=== PATIENT | male | born 1945 | race Caucasian/White ===

== ENCOUNTER 2016-09-11 10:49 | Outpatient (CLI) | payer MEDICARE ==
[~2016-09-11] VITALS: Ht 177.8 cm; Wt 109.1 kg
--- NOTE | ~2016-09-11 | HEMODYNAMI ---
PATIENT:OMAR ELAM MEDICAL RECORD: [id number] : 41 LOCATION:[facility] ADMISSION DATE: 09/11/16 Generatedon:09/11/201613:15 Patient name: OMAR ELAM Patient #: [id number] SSN: : 1945 Date of study: 09/11/2016 Page: Of Hemodynamic Procedure Report Patient Data Patient Demographics Procedure consent was obtained First Name: OMAR Gender: Male Last Name: PAPA : 1945 [facility] Initial: SOFIE Age: 71 year(s) Patient #: [id number] Race: Additional ID: [id number] Contact details [address]: [address] [place] [address] State: [place] City: [place] Zip code: [address] Past Medical History Allergies: No known allergies Admission Admission Data Admission Date: 09/11/2016 Admission Time: 10:49 Insurance Payor: Medicare Weight (lbs.): 240.31 Weight (kg.): 109 Lab Results Lab Result Date: 09/11/2016 Lab Result Time: 11:55 Biochemistry Name Units Result Min Max BUN mg/dl 25 --(----)-* 7 18 Creatinine mg/dl 1.4 --(----)*- 0.6 1.3 CBC Name Units Result Min Max Hematocrit % 45.2 --(-*--)-- 42 54 Hemoglobin g/dl 15.4 --(-*--)-- 13.5 17.5 Procedure Procedure Types Cath Procedure Miscellaneous Procedures Moderate Sedation up to 30 minutes Peripheral Cath Diagnostic Procedure Cath Peripheral Mjzpt-Zsomict-Mkw-Off Procedure Description Procedure Date Procedure Date: 09/11/2016 Procedure Start Time: 13:00 Procedure End Time: 13:12 Procedure Staff Name Function Milton Castillo MD Performing Physician Vivien Walters RT Scrub Landy Russell RN Nurse Radames Olmedo RN Promotional Representative Lloyd Mathias RT Monitor Procedure Data Cath Procedure Fluoroscopy Diagnostic fluoroscopy Total fluoroscopy Time: 1 time: 1 min min Diagnostic fluoroscopy Total fluoroscopy dose: 397 dose: 397 mGy mGy Contrast Material Contrast Material Type Amount (ml) Isovue 300 100 Entry Location Entry Primary Successful Side Size Upsize Upsize Entry Closure Succes sful Closure Location (Fr) 1 (Fr) 2 (Fr) Remarks Device Remarks Femoral Right 5 Fr Exoseal artery Estimated blood loss: 5 ml Diagnostic catheters Device Type Used For End Catheter Placement Cordis Tempo 5Fr UF Procedure catheter Procedure Complications No complications Procedure Medications Medication Administration Route Dosage Oxygen NC 2 l/min Lidocaine 2% added to field 20 Heparin Flush Bag added to field 2 bags (1000units/500ml NS) 0.9% NaCl I.V. 100 ml/hr Benadryl I.V. 50 mg Versed I.V. 1 mg Fentanyl I.V. 50 mcg Versed I.V. 1 mg Fentanyl I.V. 50 mcg Versed I.V. 1 mg Fentanyl I.V. 50 mcg Versed I.V. 0.5 mg Fentanyl I.V. 25 mcg Hemodynamics Rest HGB: 15.4 (g/dl) Heart Rate: 73 (bpm) Snapshots Pre Cath Intra NCS Post Cath Vital Signs Time Heart Resp SPO2 etCO2 [id number] NIBP (mmHg) Rhythm Pain Sedation Rate (ipm) (%) (mmHg) (mmHg) Status Level (bpm) 12:37:14 53 15 99 0 0 160/76(133) SB 0 (11) 10(A) , No pain 12:41:40 52 17 99 0 0 161/78(112) SB 0 (11) 10(A) , No pain 12:45:56 58 16 96 0 0 131/67(111) SB 0 (11) 10(A) , No pain 12:50:14 51 17 97 0 0 144/69(105) SB 0 (11) 10(A) , No pain 12:54:28 80 16 94 0 0 117/70(92) NSR 0 (11) 9(A) , No pain 12:58:40 53 22 96 0 0 126/69(101) NSR 0 (11) 9(A) , No pain 13:02:56 66 16 95 0 0 123/64(96) NSR 0 (11) 9(A) , No pain 13:07:10 63 18 94 0 0 123/63(94) NSR 0 (11) 9(A) , No pain 13:11:24 63 17 97 0 0 142/69(100) NSR 0 (11) 10(A) , No pain Medications Time Medication Route Dose Verified Delivered Reason Notes Effe ctiveness by by 12:33:45 Oxygen NC 2 Milton Buffie used for l/min Jonathan Russell RN procedure 12:34:06 Lidocaine 2% added 20ml Milton Buffie for local to vial Jonathan Russell RN anesthetic field 12:34:13 Heparin Flush added 2 Milton Buffie used for Bag to bags Jonathan Russell RN procedure (1000units/500ml field NS) 12:34:22 0.9% NaCl I.V. 100 Milton Buffie Per ml/hr Jonathan Russell RN physician 12:45:55 Benadryl I.V. 50 mg Milton Buffie used for Jonathan Russell RN procedure 12:51:29 Versed I.V. 1 mg Milton Buffie for Jonathan Russell RN sedation 12:51:35 Fentanyl I.V. 50 Milton Buffie for mcg Jonathan Russell RN sedation 13:01:46 Versed I.V. 1 mg Milton Buffie for Jonathan Russell RN sedation 13:01:52 Fentanyl I.V. 50 Milton Buffie for mcg Jonathan Russell RN sedation 13:06:01 Versed I.V. 1 mg Milton Buffie for Jonathan Russell RN sedation 13:06:04 Fentanyl I.V. 50 Milton Buffie for mcg Jonathan Russell RN sedation 13:10:20 Versed I.V. 0.5 Milton Buffie for mg Jonathan Russell RN sedation 13:10:24 Fentanyl I.V. 25 Milton Buffie for mcg Jonathan Russell RN sedation Procedure Log Time Note 12:23:05 Radames Olmedo RN sent for patient. Start room use. 12:23:06 Time tracking: Regular hours 12:23:10 Plan of Care:Hemodynamics will remain stable., Cardiac rhythm will remain stable., Comfort level will be maintained., Respiratory function will remain adequate., Patient/ family verbilizes understanding of procedure., Procedure tolerated without complication., Recovers from procedure without complications.. 12:25:25 Patient allergic to No known allergies 12:25:47 ACCPatient has been prescribed/administered the following anti-anginal medication within the last 2 weeks: Beta Henrry 12:26:37 Patient received from Pre/Post Procedure Room to CCL 1 Alert and oriented. Tansferred to table in Supine position. 12:26:38 Warm blankets applied, and rebeka hugger turned on for patient comfort. 12:26:38 Correct patient and procedure confirmed by team. 12::40 Signed procedure consent form obtained from patient. 12::41 ECG and BP/O2 sat monitors applied to patient. 12:26:53 H&P Date Dictated: 09/04/2016 Within 30 days and on chart., H&P Addendum completed by physician on day of procedure. (MUST COMPLETE FOR ALL OUTPATIENTS). 12::55 Pre-procedure instructions explained to patient. 12::56 Pre-op teaching completed and patient verbalized understanding. 12:26:57 Family in waiting room. 12::59 Patient NPO since Midnight. 12:32:39 Is the patient allergic to Iodine/contrast media? No. 12:32:45 ACC The patient was administered the following blood thiners within the last 24 hours: None 12:33:14 Last dose of Eliquis was 09/08/16. 12:33:17 Patient diabetic? No. 12:33:19 Previous problem with sedation/anesthesia? No ? 12:33:20 Snore? Yes 12:33:21 Sleep apnea? No 12:33:21 Deviated septum? No 12:33:22 Opens mouth fully? Yes 12:33:23 Sticks out tongue? Yes 12:33:25 Airway obstruction? No ? 12:33:26 Dentures? No ? 12:33:38 Pre procedure: right dorsailis pedis pulse 1+ Palpable, but thready & weak; easily obliterated 12:33:42 Pre procedure: left dorsailis pedis pulse 1+ Palpable, but thready & weak; easily obliterated 12:33:45 Oxygen 2 l/min NC was given by Landy Russell RN; used for procedure; 12:33:47 Patient pain scale 0/10 ?. 12:34:05 IV patent on arrival in left wrist with 0.9% NaCl at [facility]. 12:34:06 Lidocaine 2% 20ml vial added to field was given by Landy Russell RN; for local anesthetic; 12:34:08 Lab results completed and on chart. 12:34:11 Bilateral groins area was prepped with chlora-prep and draped in sterile fashion 12:34:13 Heparin Flush Bag (1000units/500ml NS) 2 bags added to field was given by Landy Russell RN; used for procedure; 12:34:20 Alarms reviewed by R. N. 12:34:21 Sharps counted by scrub and verified by R.N. 12:34:22 0.9% NaCl 100 ml/hr I.V. was given by Landy Russell RN; Per physician; 12:34:37 Tegaderm 4 x 4 opened to sterile field. 12:34:37 Acist Manifold opened to sterile field. 12:34:38 Acist Hand Control opened to sterile field. 12:34:39 Acist Syringe opened to sterile field. 12:34:40 Bag Decanter opened to sterile field. 12:34:40 Medline Cath Pack opened to sterile field. 12:34:41 Terumo 5Fr [place] Sheath opened to sterile field. 12:34:41 [facility] 260cm J .035 wire opened to sterile field. 12:35:09 Vital chart was started 12:35:16 Rhythm: sinus rhythm 12:35:18 Full Disclosure recording started 12:39:59 Baseline sample Acquired. 12:45:55 Benadryl 50 mg I.V. was given by Landy Russell RN; used for procedure; 12:49:52 Zero performed for pressure channel P1 12:50:59 --------ALL STOP TIME OUT------ 12:51:01 Final Timeout: patient, procedure, and site verified with staff and physician. All members of the team are in agreement. 12:51:07 Bilateral groins site verified by team. 12:51:13 Physical assessment completed. ASA score P 2 - A patient with mild systemic disease as per Milton Castillo MD. 12:51:16 Sedation plan: IV Moderate Sedation Versed, Fentanyl 12:51:29 Versed 1 mg I.V. was given by Landy Russell RN; for sedation; 12:51:35 Fentanyl 50 mcg I.V. was given by Landy Russell RN; for sedation; 13:00:03 Procedure started. 13:00:07 Local anesthetic to right femoral artery with Lidocaine 2% by Milton Castillo MD.INITIAL ACCESS ONLY 13:00:14 A 5 Fr sheath was inserted into the Right Femoral artery 13:01:46 Versed 1 mg I.V. was given by Landy Russell RN; for sedation; 13:01:52 Fentanyl 50 mcg I.V. was given by Landy Russell RN; for sedation; 13:02:24 A Cordis Tempo 5Fr UF catheter was advanced over the wire and used for Procedure. 13:02:32 Abdominal Aortagram was performed. 13:04:47 Left leg runoff performed. 13:04:59 Right leg runoff performed. 13:06:01 Versed 1 mg I.V. was given by Landy Russell RN; for sedation; 13:06:04 Fentanyl 50 mcg I.V. was given by Landy Russell RN; for sedation; 13:09:49 Catheter removed. 13:09:59 Cordis 5Fr Exoseal opened to sterile field. 13:10:20 Versed 0.5 mg I.V. was given by Landy Russell RN; for sedation; 13:10:24 Fentanyl 25 mcg I.V. was given by Landy Russell RN; for sedation; 13:10:25 Sheath removed intact; hemostasis achieved with Exoseal to the Right Femoral artery. 13:10:28 Procedure ended.(Physican Out) 13:10:37 Fluoroscopy time 01.00 minutes. 13:10:44 Fluoroscopy dose: 397 mGy 13:10:44 Flurop Dose total: 397 13:10:47 Contrast amount:Isovue 300 100ml. 13:10:48 Sharps counted by scrub and verified by R.N. 13:10:49 Insertion/operative site no bleeding no hematoma. 13:10:52 Post-op/insertion site Right Femoral artery dressed using a 4 x 4 and Tegaderm. 13:10:58 Post right femoral artery:stable, soft, clean and dry 13:11:00 Post Procedure Pulses reassessed and unchanged 13:11:13 Post-procedure physical assessment completed. ASA score P 2 - A patient with mild systemic disease as per Milton Castillo MD. 13:11:16 Post procedure rhythm: unchanged. 13:11:18 Estimated blood loss: 5 ml 13:11:19 Post procedure instruction explained to patient.Patient verbalizes understanding. 13:11:20 Patient needs reinforcement of post procedure teaching. 13:12:09 Procedure type changed to Cath procedure, Miscellaneous Procedures, Moderate Sedation up to 30 minutes, Peripheral Cath Diagnostic Procedure, Cath Peripheral, Whgtm-Bcbrpea-Hyb-Off 13:12:41 Procedure and supply charges have been captured, reviewed, submitted and are correct. 13:12:43 Procedure Complication : No complications 13:12:45 Vital chart was stopped 13:12:45 See physician's report for complete and final results. 13:12:47 Report given to Pre/Post Procedure Room. 13:12:49 Patient transfered to Pre/Post Procedure Room with Stretcher. 13:12:51 Procedure ended. 13:12:51 Full Disclosure recording stopped 13:13:04 End room use (Document Last) 13:13:14 Patient Weight : 240.31 lbs 13:13:30 Insurance Payor : Medicare 13:14:48 Lab Result : Hemoglobin 15.4 g/dl 13:14:48 Lab Result : Creatinine 1.4 mg/dl 13:14:48 Lab Result : BUN 25 mg/dl 13:14:48 Lab Result : Hematocrit 45.2 % Device Usage Item Manufacture Quantity Catalog Hospital Part Current Minimal Lot# / Name Number Charge Number Stock Stock [facility]# Code [facility] [id number] [id number] 5 4 x 4 Acist Acist 1 07309 180535 427137 604136 5 Manifold [employer] Inc Acist Acist 1 09284 021110 594102 771084 5 Hand Medical Control Systems Inc Acist Acist 1 54364 200834 913527 090370 20 Syringe [employer] Inc Bag Microtek 1 2002S 063107 84073 910070 5 Decanter [employer] Medline Cardinal 1 [id number] 928990 66415 192212 5 Cath Health Pack Terumo Terumo 1 [id number] 045649 955260 860672 40 5Fr [place] [facility] Eliezer 1 516258 009149 705795 155802 30 260cm J .035 wire Cordis Cardinal 1 [id number] 165336 030547 744721 10 [facility] Spime 5Fr UF catheter Cordis Cardinal 1 EX500 [id number] 702726 630627 10 5Fr Health Exoseal Signature Audit [employer] Stage Time Signature Unsigned Intra-Procedure 09/11/2016 Lloyd Mathias 1:14:58 PM RT(R) Signatures Monitor : Lloyd Mathias RT Signature : Date : Time : [address] [place] [address]
[~2016-09-11 10:49] MED LIST: BAYER CHEWABLE81 MG PO; CENTRUM SILVER1 TA2 PO; CYCLOBENZAPRINE10 MG PO; DIOVAN HCT 320/1 TA2 PO; HEMOCYTE PLUS1 CAP PO; HYDROCODONE-APA1 TAB PO; LASIX40 MG PO; LOPRESSOR25 MG PO; METOPROLOL-HCT1 EACH PO; NORCO 5/325 TAB1 TA1 PO; NORVASC10 MG PO; PAXIL20 MG PO; PAXIL30 MG PO; PERCOCET 10/3251 TA1 PO; PLAVIX75 MG PO; PRAVACHOL20 MG PO; VIBRAMYCIN 100100 MG OR; VIBRAMYCIN 100100 MG PO; VIBRAMYCIN50 MG PO; VITAMIN B-121000 MCG PO
[2016-09-11] MEDS ORDERED: ELIQUIS2.5 MG PO (11:30)
[2016-09-11 11:34] VITALS: BP 136/64; Ht 177.8 cm; Wt 109.1 kg
[2016-09-11 12:04] LABS: BASOPHILS 0.5 % (0.0-2.0); EOSINOPHILS 3.2 % (0-7); HEMATOCRIT 45.2 % (42.0-54.0); HEMOGLOBIN 15.4 g/dL (13.5-17.5); IMMATURE GRANULOCYTES 1.3 % (0-5); LYMPHOCYTES 14.8 % (15-50); MCH 31.5 pg (26.0-34.0); MCHC 34.1 g/dL (31.0-37.0); MCV 92.4 fL (80.0-100.0); MEAN PLATELET VOLUME 12.2 fL (7.4-10.4); MONOCYTES 9.1 % (2-11); NEUTROPHILS 71.1 % (40-80); PLATELET COUNT 210 10x3/uL (130-400); RBC 4.89 10x6/uL (4.20-6.10); RDW 13.3 % (11.5-14.5); WBC 7.6 10x3/uL (4.8-10.8)
[2016-09-11 12:13] LABS: CALCIUM 9.3 mg/dL (8.5-10.1); CARBON DIOXIDE 32.8 mmol/L (21.0-32.0); CREATININE - SERUM 1.4 mg/dL (0.6-1.3)
[2016-09-11 12:15] LABS: ANION GAP 7.7 mmol/L (8-16); POTASSIUM - SERUM 4.5 mmol/L (3.5-5.1)
--- NOTE | 2016-09-11 13:49 | NUR ---
VSS WITH 5 FR EXOSEAL R/GROIN CDI NO BLEEDING NO HEMATOMA NOTED. CHEST PAIN IS DENIED
--- NOTE | 2016-09-11 16:04 | NUR ---
1415 PT DENIES ANY C/O PAIN OR NAUSEA. DRESSING TO RIGHT GROINIS CDI, NO BLEEDING OR HEMATOMA NOTED. PEDAL PULSES PALPABLE. AT BEDSIDE. VSS. INSTRUCTED PT TO KEEP RIGHT LEG STRAIGHT AND HEAD TO PILLOW AND PT VERBALIZES UNDERSTANDING. 1515 PT DENIES ANY C/O. DRESSING TO RIGHT GROIN IS CDI, PEDAL PULSES PALPABLE.
--- NOTE | 2016-09-11 16:24 | NUR ---
1550 IV DC'D WITH CATH INTACT. ASSISTED PT TO BETHROOM. PT VOIDED QS. 1605 REVIEWED DC INSTRUCTIONS WITH PT AND WHO VERBALIZE UNDERSTANDING. PT ESCORTED TO PRIVATE AUTO VIA WC BY STAFF WITH DRIVING HIM HOME.
--- NOTE | 2016-09-24 08:17 | OP ---
PATIENT NAME: OMAR ELAM MEDICAL RECORD: [id number] :41 LOCATION:D.CAT ADMISSION DATE: SURGEON: KORY DONATO M.D. DATE OF OPERATION: 09/11/2016 Catheterization Report PROCEDURES PERFORMED: Aortofemoral runoff. INDICATION: A 71-year-old gentleman, who presents with lifestyle limiting claudication. He has undergone VP OF CUSTOMER EXPERIENCE STRATEGY to the iliac arteries in the past. EQUIPMENT USED: A 5-Turkish pigtail catheter. TECHNIQUE: A 5-Turkish sheath was inserted in retrograde fashion in the right common femoral artery. Next, a pigtail catheter was advanced to the level of T12. Power injection was performed to visualize the distal aorta. Next, the catheter was pulled down at the level of bifurcation. At this point, right lower extremity angiogram was then performed. ANATOMY: The distal aorta is of good caliber. It is somewhat ectatic in the mid segment. Each kidney receives a single arterial supply. There is no evidence of renal artery stenosis. The right common iliac artery is large in caliber and widely patent. The right external iliac artery is large in caliber and patent. The stent in the external iliac artery appears patent without evidence of restenosis. Right superficial artery has mild irregularities throughout its course. The right popliteal artery has mild irregularities throughout its course. Below the knee, there appears to be 2-vessel runoff. Left common iliac artery is large in caliber and widely patent. Left external iliac artery has been stented. The stent appears patent. At the bifurcation point of the external and internal iliac, there is a hazy stenosis, which may be as much as 50%. The left superficial artery is large in caliber. The mid segment has a long diffuse area of multiple 78% stenosis. Left popliteal artery is widely patent and has no obstruction. Below the knee, there appears to be 2-vessel runoff. IMPRESSION: 1. Significant disease involving the left superficial artery in the proximal one-third. 2. Questionable stenosis involving the left common iliac artery at the bifurcation point. RECOMMENDATIONS: I will review the films from his last angiogram. I will likely proceed with directional atherectomy of the left superficial artery as he is having symptoms in this leg. TRANSINT:[id number] Voice Confirmation ID: [id number] DOCUMENT ID: [id number] OPERATIVE REPORT [id number] OMAR ELAM KORY DONATO M.D. at 0817 CC: [id number] DICTATION DATE: 09/11/16 1317 AIR QUALITY CONSULTANT: 09/11/16 2202 DEP CLI 09/11/16 [address] [address] [place] [address]
== END 2016-09-11 16:05 | disposition home or self-care (01) ==
LOC: D.CATH 10:49
PROVIDERS: Internal Medicine Cardiovascular Disease
DX: I70.212 Atherosclerosis of native arteries of extremities with intermittent claudication, left leg (principal)

== ENCOUNTER 2016-09-19 07:00 | Outpatient (CLI) | payer MEDICARE ==
[~2016-09-19] VITALS: Ht 177.8 cm; Wt 109.1 kg
--- NOTE | ~2016-09-19 | HEMODYNAMI ---
PATIENT:OMAR ELAM MEDICAL RECORD: [id number] : 41 LOCATION:D.CAT ADMISSION DATE: 09/19/16 Generatedon:09/19/201611:43 Patient name: OMAR ELAM Patient #: [id number] SSN: : 1945 Date of study: 09/19/2016 Page: Of Hemodynamic Procedure Report Patient Data Patient Demographics Procedure consent was obtained First Name: OMAR Gender: Male Last Name: PAPA : 1945 [facility] Initial: SOFIE Age: 71 year(s) Patient #: [id number] Race: Additional ID: [id number] Contact details Address: [address] [place] [address] State: [place] City: [place] Zip code: [address] Past Medical History Allergies: No known allergies Admission Admission Data Admission Date: 09/19/2016 Admission Time: 7:00 Lab Results Lab Result Date: 09/19/2016 Lab Result Time: 0:00 Biochemistry Name Units Result Min Max BUN mg/dl 36 --(----)-* 7 18 Creatinine mg/dl 1.5 --(----)-* 0.6 1.3 CBC Name Units Result Min Max Hemoglobin g/dl 14.4 --(*---)-- 13.5 17.5 Procedure Procedure Types Cath Procedure Peripheral Cath Diagnostic Procedure Peripheral vascular Intervention Atherectomy Atherectomy Fem/Pop w/Plasty Procedure Description Procedure Date Procedure Date: 09/19/2016 Procedure Start Time: 10:21 Procedure End Time: 11:43 Procedure Staff Name Function Milton Castillo MD Performing Physician Vivien Walters RT Scrub Radames Olmedo RN Nurse Nate Mane RT Monitor Lloyd Mathias RT Scrub Procedure Data Cath Procedure Fluoroscopy Diagnostic fluoroscopy Total fluoroscopy Time: time: 17.1 min 17.1 min Diagnostic fluoroscopy Total fluoroscopy dose: 440 dose: 440 mGy mGy Contrast Material Contrast Material Type Amount (ml) Isovue 300 85 Entry Location Entry Primary Successful Side Size Upsize Upsize Entry Closure Succes sful Closure Location (Fr) 1 (Fr) 2 (Fr) Remarks Device Remarks Femoral Right 6 Fr 6 Fr Exoseal artery Short Short Estimated blood loss: 20 ml Procedure Medications Medication Administration Route Dosage Oxygen NC 2 l/min Heparin Flush Bag added to field 2 bags (1000units/500ml NS) 0.9% NaCl I.V. 100 ml/hr Fentanyl I.V. 50 mcg Versed I.V. 1 mg Heparin Bolus I.V. 9000 units Viperslide Mix(5mg added to field 1 bags Verapamil/5mg Nitro/20cc Viperslide/100cc Bag NS) Fentanyl I.V. 50 mcg Versed I.V. 1 mg Plavix P.O. 600 mg Hemodynamics Rest HGB: 14.4 (g/dl) Heart Rate: 48 (bpm) Snapshots Pre Cath Intra NCS Post Cath Vital Signs Time Heart Resp SPO2 etCO2 [id number] NIBP (mmHg) Rhythm Pain Sedation Rate (ipm) (%) (mmHg) (mmHg) Status Level (bpm) 10:06:51 48 18 98 0 0 155/78(131) NSR 0 (11) 10(A) , No pain 10:11:11 46 16 96 0 0 131/77(116) NSR 0 (11) 10(A) , No pain 10:16:14 68 17 93 0 0 152/71(129) NSR 0 (11) 10(A) , No pain 10:26:37 61 16 98 0 0 139/79(112) NSR 0 (11) 9(A) , No pain 10:30:55 68 16 98 0 0 137/69(113) NSR 0 (11) 9(A) , No pain 10:35:11 53 17 98 0 0 138/71(113) NSR 0 (11) 9(A) , No pain 10:39:15 46 16 98 0 0 126/72(120) NSR 0 (11) 9(A) , No pain 10:44:22 57 18 98 0 0 138/77(112) NSR 0 (11) 9(A) , No pain 10:49:27 45 18 98 0 0 139/66(107) NSR 0 (11) 9(A) , No pain 10:53:41 58 17 97 0 0 127/79(109) NSR 0 (11) 9(A) , No pain 10:57:57 45 17 97 0 0 132/57(101) NSR 0 (11) 9(A) , No pain 11:02:13 47 17 97 0 0 121/63(96) NSR 0 (11) 9(A) , No pain 11:06:23 45 16 97 0 0 139/76(118) NSR 0 (11) 9(A) , No pain 11:10:39 50 18 96 0 0 125/77(105) NSR 0 (11) 9(A) , No pain 11:15:38 47 17 96 0 0 136/70(108) NSR 0 (11) 9(A) , No pain 11:19:54 47 16 97 0 0 138/74(111) NSR 0 (11) 9(A) , No pain 11:24:58 47 16 96 0 0 152/68(115) NSR 0 (11) 9(A) , No pain 11:29:09 47 17 96 0 0 127/72(104) NSR 0 (11) 9(A) , No pain 11:34:06 45 17 96 0 0 134/74(105) NSR 0 (11) 9(A) , No pain 11:38:22 45 18 97 0 0 145/74(122) NSR 0 (11) 9(A) , No pain 11:42:32 0 0 No Cuff NSR 0 (11) 10(A) , No pain Medications Time Medication Route Dose Verified Delivered Reason Notes Effectiveness by by 10:04:15 Oxygen NC 2 Radames Crum Per physician l/min Honorio Olmedo RN RN 10:04:25 Heparin Flush added 2 Radames Radames Per physician Bag to bags Honorio Olmedo RN (1000units/500ml field RN NS) 10:05:03 0.9% NaCl I.V. 100 Radames Crum Per physician ml/hr Honorio Olmedo RN RN 10:18:47 Fentanyl I.V. 50 Radames Radames for sedation mcg Honorio Olmedo RN RN 10:18:57 Versed I.V. 1 mg Radames Crum for sedation Honorio Olmedo RN RN 10:52:42 Heparin Bolus I.V. 9000 Radames Crum for units Honorio Olmedo RN anticoagulation RN 11:02:53 Viperslide added 1 Radames Crum Per physician Mix(5mg to bags Honorio Olmedo RN Verapamil/5mg field RN Nitro/20cc Viperslide/100cc Bag NS) 11:17:59 Fentanyl I.V. 50 Radames Crum for sedation mcg Honorio Olmedo RN RN 11:18:04 Versed I.V. 1 mg Radames Crum for sedation Honorio Olmedo RN RN 11:40:00 Plavix P.O. 600 Radames Crum for mg Honorio Olmedo RN antiplatelet RN therapy Procedure Log Time Note 9:53:27 Radames Olmedo RN sent for patient. Start room use. 9:53:28 Time tracking: Regular hours 9:53:32 Plan of Care:Hemodynamics will remain stable., Cardiac rhythm will remain stable., Comfort level will be maintained., Respiratory function will remain adequate., Patient/ family verbilizes understanding of procedure., Procedure tolerated without complication., Recovers from procedure without complications.. 9:53:39 Use device set Femoral PCI 9:53:41 Acist Syringe opened to sterile field. 9:53:42 Acist Hand Control opened to sterile field. 9:53:42 Bag Decanter opened to sterile field. 9:53:43 Medline Cath Pack opened to sterile field. 9:53:44 Terumo 6Fr Edmond Sheath opened to sterile field. 9:53:45 [facility] 260cm J .035 wire opened to sterile field. 9:53:46 Merit BasixCompak Inflation Kit opened to sterile field. 9:53:46 Acist Manifold opened to sterile field. 9:54:09 Tegaderm 4 x 4 opened to sterile field. 10:04:15 Oxygen 2 l/min NC was administered by Radames Olmedo RN; Per physician; 10:04:25 Heparin Flush Bag (1000units/500ml NS) 2 bags added to field was administered by Radames Olmedo RN; Per physician; 10:05:03 0.9% NaCl 100 ml/hr I.V. was administered by Radames Olmedo RN; Per physician; 10:05:21 Patient received from Pre/Post Procedure Room to [facility] 1 Alert and oriented. Tansferred to table in Supine position. 10:05:22 Warm blankets applied, and rebeka hugger turned on for patient comfort. 10:05:23 Correct patient and procedure confirmed by team. 10:05:24 Signed procedure consent form obtained from patient. 10:05:25 ECG and BP/O2 sat monitors applied to patient. 10:05:26 Vital chart was started 10:05:27 Full Disclosure recording started 10:06:55 Baseline sample Acquired. 10:07:05 Rhythm: sinus bradycardia 10:08:28 H&P Date Dictated: 09/19/2016 New H&P dictated by physician.. 10:08:29 Pre-procedure instructions explained to patient. 10:08:31 Pre-op teaching completed and patient verbalized understanding. 10:08:33 Family in waiting room. 10:08:35 Patient NPO since Midnight. 10:08:46 Patient allergic to No known allergies 10:08:50 Is patient on blood thinner?Yes 10:09:29 ELIQUIS LAST DOSE 09/17/2016 10:09:37 Patient diabetic? No. 10:09:41 ----Pre-sedation anethsthesia assessment.---- 10:09:44 Previous problem with sedation/anesthesia? No ? 10:09:46 Snore? Yes 10:09:49 Sleep apnea? No 10:09:58 Deviated septum? No 10:10:43 Opens mouth fully? Yes 10:10:44 Sticks out tongue? Yes 10:10:48 Airway obstruction? No ? 10:10:57 Dentures? No ? 10:11:03 Pre procedure: right dorsailis pedis pulse 1+ Palpable, but thready & weak; easily obliterated 10:11:08 Patient pain scale 0/10 ?. 10:11:32 IV patent on arrival in left forearm with 0.9% NaCl at [facility]. 10:12:20 Right groin area was prepped with chlora-prep and draped in sterile fashion 10:12:22 Alarms reviewed by R. N. 10:12:23 Sharps counted by scrub and verified by R.N. 10:13:13 Baseline sample Acquired. 10:14:10 Lab Result : BUN 36 mg/dl 10:14:10 Lab Result : Creatinine 1.5 mg/dl 10:14:10 Lab Result : Hemoglobin 14.4 g/dl 10:18:47 Fentanyl 50 mcg I.V. was administered by Radames Olmedo RN; for sedation; 10::57 Versed 1 mg I.V. was administered by Radames Olmedo RN; for sedation; ::57 Physician arrived 10::58 --------ALL STOP TIME OUT------ 10:18:59 Final Timeout: patient, procedure, and site verified with staff and physician. All members of the team are in agreement. 10:19: Right groin site verified by team. 10:19:05 Physical assessment completed. ASA score P 2 - A patient with mild systemic disease as per Milton Castillo MD. 10:19:10 Sedation plan: IV Moderate Sedation Versed, Fentanyl 10:: Zero performed for pressure channel P1 10::24 Zero performed for pressure channel P1 10::27 Zero performed for pressure channel P1 10:21:15 Procedure started. 10:21:29 Local anesthetic to right femoral artery with Lidocaine 2% by Milton Castillo MD.INITIAL ACCESS ONLY 10:26:19 A 6 Fr Short sheath was inserted into the Right Femoral artery 10:26:55 A 5 FrFr IM catheter was inserted over the wire. 10:46:41 GLIDE WIRE INSERTED INTO LEFT FEMORAL ARTERY, SHEATH EXCHANGED TO 6FR DESTINATION 10:47:41 Angiography was performed. 10:47:46 Left leg runoff performed. 10:52:13 Use device set Femoral PCI 10:52:19 Merit BasixCompak Inflation Kit opened to sterile field. 10:52:42 Heparin Bolus 9000 units I.V. was administered by Radames Olmedo RN; for anticoagulation; 10:54:31 The Viperwire Advance Coronary guidewire was advanced and then removed because 10:55:08 viper wire charged above(not removed) 10:58:36 Viper wire wire advanced. 10:58:39 Wire advanced across lesion. 11:02:40 A Diamondback Coronary atherectomy catheter was prepped and advanced across the Mid Superficial Femoral, Left lesion. Pass Number: 1 11:02:53 Viperslide Mix(5mg Verapamil/5mg Nitro/20cc Viperslide/100cc Bag NS) 1 bags added to field was administered by Radames Olmedo RN; Per physician; 11:03:58 all passed high, med, low. 11:13:07 Diamondback catheter out over the wire 11:17:59 Fentanyl 50 mcg I.V. was administered by Radames Olmedo RN; for sedation; 11:18:04 Versed 1 mg I.V. was administered by Radames Olmedo RN; for sedation; 11:19:15 Inflation number: 1 A Saber 6.0 X 150 X 150 balloon was prepped and advanced across the Mid Superficial Femoral, Left, then inflated to 3 CHERRIE for 3:00 (min:sec). 11:20:54 Balloon removed over the wire. 11:27:11 Inflation number: 2 The Saber 6.0 X 150 X 150 balloon was reinflated across the Mid Superficial Femoral, Left, to 5 CHERRIE for 4:00 (min:sec). 11:27:51 Balloon removed over the wire. 11:30:00 Wire removed. 11:30:57 Cordis 6Fr Exoseal opened to sterile field. 11:32:26 Sheath upsized to a 6 Fr Short. 11:32:48 Destination removed 11:33:03 Sheath removed intact; hemostasis achieved with Exoseal to the Right Femoral artery. 11:33:48 PCI Cath Status : Elective 11:34:18 Procedure ended.(Physican Out) 11:34:35 Fluoroscopy time 17.10 minutes. 11:34:41 Flurop Dose total: 440 11:34:41 Fluoroscopy dose: 440 mGy 11:34:46 Contrast amount:Isovue 300 85ml. 11:34:48 Sharps counted by scrub and verified by R.N. 11:35:59 Procedure type changed to Cath procedure, Peripheral Cath Diagnostic Procedure, Peripheral vascular Intervention, Atherectomy, Atherectomy Fem/Pop w/Plasty 11:40:00 Plavix 600 mg P.O. was administered by Radames Olmedo RN; for antiplatelet therapy; 11:42:19 Insertion/operative site no bleeding no hematoma. 11:42:28 Post-op/insertion site Right Femoral artery dressed using a 4 x 4 and Tegaderm. 11:42:32 Post right femoral artery:stable 11:42:35 Post Procedure Pulses reassessed and unchanged 11:42:38 Estimated blood loss: 20 ml 11:42:42 Post procedure instruction explained to patient.Patient verbalizes understanding. 11:42:42 Patient needs reinforcement of post procedure teaching. 11:42:43 Procedure and supply charges have been captured, reviewed, submitted and are correct. 11:42:44 Vital chart was stopped 11:42:50 See physician's report for complete and final results. 11:42:54 Report given to Pre/Post Procedure Room. 11:42:59 Patient transfered to Pre/Post Procedure Room with Stretcher. 11:43:04 Procedure ended. 11:43:04 Full Disclosure recording stopped 11:43:09 End room use (Document Last) Intervention Summary Intervention Notes Time ActionType Lesion and Equipment Action# Pressure Duration Attributes Used 10:54:31 Discard Viperwire Balloon Advance Coronary guidewire 11:02:40 Atherectomy Mid Diamondback 00:20 Superficial Coronary Femoral, atherectomy Left catheter 11:19:15 Inflate Mid Saber 6.0 X 1 3 03:00 balloon Superficial 150 X 150 Femoral, balloon Left 11:27:11 Reinflate Mid Saber 6.0 X 2 5 04:00 balloon Superficial 150 X 150 Femoral, balloon Left Device Usage Item Name Manufacture Quantity Catalog Hospital Part Current Minim al Lot# / Number Charge Number Stock Stock Serial# Code Acist Acist Medical 1 27983 [id number] 636857 [id number] 20 Syringe Systems Inc Acist Hand Acist Medical 1 75581 086926 805896 715175 5 Control Systems Inc Bag Microtek 1 2002S 463338 63245 323264 5 Decanter Medical Inc. Medline Cardinal 1 [id number] 604008 32587 079354 5 Cath Pack Health Terumo 6Fr Terumo 1 IBS044 509772 107790 522051 [address] [facility] 1 178706 253031 888204 980150 30 260cm J .035 wire [facility] 2 [id number] 525862 894819 507821 15 BasixCompak Inflation Kit Acist Acist Medical 1 75633 183654 439809 962527 5 Manifold Systems Inc Tegaderm 4 3M 1 1626W 881149 111036 186099 5 x 4 Viperwire Cardiovascular 1 [facility]-08445CM 458591 805681 397247 5 Advance systems Coronary guidewire Diamondback Cardiovascular 1 DBEC-125 174540 964034 676576 5 Coronary systems atherectomy catheter Saber 6.0 X Cardinal 1 [id number] 867375 673146 5 150 X 150 Health balloon Cordis 6Fr Cardinal 1 EX600 044930 351742 731892 10 Exoseal Health Signature Audit Adkins Stage Time Signature Unsigned Intra-Procedure 09/19/2016 Nate Mane 11:43:31 AM RT(R) (CV) Signatures Monitor : Nate Mane RT Signature : Date : Time : [facility] [address] [place] [address]
[~2016-09-19 07:00] MED LIST changes: +ELIQUIS2.5 MG PO
[2016-09-19 07:58] VITALS: BP 147/65; Ht 177.8 cm; Wt 109.1 kg
[2016-09-19 08:22] LABS: BASOPHILS 0.5 % (0.0-2.0); EOSINOPHILS 3.4 % (0-7); HEMATOCRIT 42.5 % (42.0-54.0); HEMOGLOBIN 14.4 g/dL (13.5-17.5); IMMATURE GRANULOCYTES 0.9 % (0-5); LYMPHOCYTES 12.5 % (15-50); MCH 31.3 pg (26.0-34.0); MCHC 33.9 g/dL (31.0-37.0); MCV 92.4 fL (80.0-100.0); MEAN PLATELET VOLUME 10.9 fL (7.4-10.4); MONOCYTES 8.9 % (2-11); NEUTROPHILS 73.8 % (40-80); PLATELET COUNT 191 10x3/uL (130-400); RDW 12.9 % (11.5-14.5); WBC 7.6 10x3/uL (4.8-10.8)
[2016-09-19 08:32] LABS: ANION GAP 10.4 mmol/L (8-16); CALCIUM 9.4 mg/dL (8.5-10.1); CARBON DIOXIDE 33.5 mmol/L (21.0-32.0); CREATININE - SERUM 1.5 mg/dL (0.6-1.3); POTASSIUM - SERUM 3.9 mmol/L (3.5-5.1)
--- NOTE | 2016-09-19 12:15 | NUR ---
1215 VSS WITH CHEST PAIN DENIED 6 FR EXOSEAL R/GROIN CDI NO BLEEDING NO HEMATOMA NOTED. INSTRUCTED PATIENT TO KEEP HEAD FLAT ON PILLOW WITH RLE STRAIGHT 1245 NO DISTRESS NOTED NAUSEA DENIED VSS WITH 6 FR EXOSEAL R/GROIN CDI NO BLEEDING NO HEMATOMA NOTED.
[2016-09-19] MEDS ORDERED: PLAVIX75 MG PO (12:16)
--- NOTE | 2016-09-19 13:11 | NUR ---
RESTING QUIETLY WITH EYES CLOSED VSS 6 FR EXOSEAL R/GROIN CDI NO BLEEDING NO HEMATOMA NOTED PULSES PRESENT AND MARKED
--- NOTE | 2016-09-19 13:49 | NUR ---
PATIENT VOIDS 300 CC URINE TO COLLECTION. 6 FR EXOSEAL R/GROIN CDI NO BLEEDING NO HEMATOMA NOTED
--- NOTE | 2016-09-19 14:35 | NUR ---
VSS WITH CHEST PAIN DENIED FAMILY AT SIDE 6 FR EXOSEAL R/GROIN CDI NO BLEEDING NO HEMATOMA NOTED
--- NOTE | 2016-09-19 15:26 | NUR ---
RESTING QUIETLY WITH EYES CLOSED RESPIRATIONS EVEN VSS AT SIDE
--- NOTE | 2016-09-19 16:03 | NUR ---
PIV REMOVED WITH DRESSING APPLIED. PATIENT UP TO GET DRESSED FOR DISCHARGE HOME. VERBAL AND WRITTEN INSTRUCTIONS GONE OVER WITH PATIENT AND . LEFT VIA WC TO PARKING FOR TO DRIVE HOME 6 DR DEL CID R/GROIN CDI NO BLEEDING NO HEMATOMA. CHEST PAIN DENIED
--- NOTE | 2016-09-24 08:17 | OP ---
PATIENT NAME: OMAR ELAM MEDICAL RECORD: [id number] :41 LOCATION:D.CAT ADMISSION DATE: SURGEON: KORY DONATO M.D. DATE OF OPERATION: 09/19/2016 PROCEDURES PERFORMED: 1. SPIRITUAL MINISTER of the left superficial artery. 2. Atherectomy of the left superficial artery. INDICATION: A 71-year-old gentleman presents with lifestyle-limiting claudication. Recent angiogram revealed critical lesions involving left superficial artery. DESCRIPTION OF INTERVENTION: A 6-Swiss sheath was inserted in retrograde fashion in the right common femoral artery. Next, the mammary catheter used to cross the bifurcation. A stiff Glidewire was placed in the left superficial artery. At this point, a 6-Swiss Terumo sheath was advanced around the bifurcation and placed at the distal edge the left common femoral artery. Injections then revealed 2 sequential 80% stenoses involving the left superficial artery in the proximal mid segment. At the junction of the mid to distal segment, there is a long area of 70% stenosis, which is quite hazy and ulcerated. 9000 units of heparin was infused. A Viper wire was then placed into the distal popliteal artery. At this point, a 2.0 solid crown atherectomy device was advanced and runs performed with the proximal, mid and distal superficial artery at low, medium and high speed. Injections revealed about a 50% residual stenosis in those areas, which has undergone atherectomy. At this point, a 6-mm x 150-mm Saber balloon was placed across the length of the atherectomy site. A long inflation was performed at 5 atmospheres. Injections revealed by 20% residual stenosis in the treated areas. There is no evidence of any dissection. There is marked improvement in distal flow. At this point, the balloon and wire were removed. IMPRESSION: Successful percutaneous transluminal angioplasty and atherectomy to the left superficial artery. TRANSINT:[id number] Voice Confirmation ID: [id number] DOCUMENT ID: [id number] KORY DONATO M.D. at 0817 CC: [id number] DICTATION DATE: 09/19/16 1139 SWEET DOUGH MIXER: 09/19/16 204 DEP CLI 09/19/16 [id number] [place] [address]
== END 2016-09-19 16:06 | disposition home or self-care (01) ==
LOC: D.CATH 07:00
PROVIDERS: Internal Medicine Cardiovascular Disease
DX: I70.212 Atherosclerosis of native arteries of extremities with intermittent claudication, left leg (principal)

== ENCOUNTER → 2018-05-21 06:33 | Outpatient (CLI) | payer MEDICARE ==
[~2018-05-21] VITALS: Ht 177.8 cm; Wt 100.0 kg
--- NOTE | ~2018-05-21 | HEMODYNAMI ---
PATIENT:OMAR ELAM MEDICAL RECORD: [id number] : 41 LOCATION:[facility] ADMISSION DATE: 05/21/18 Generatedon:05/21/201810:19 Patient name: OMAR ELAM Patient #: [id number] SSN: : 1945 Date of study: 05/21/2018 Page: Of Hemodynamic Procedure Report Patient Data Patient Demographics Procedure consent was obtained First Name: OMAR Gender: Male Last Name: PAPA : 1945 [facility] Initial: SOFIE Age: 73 year(s) Patient #: [id number] Race: Additional ID: [id number] Contact details [address]: [address] [place] [address] State: [place] City: [place] Zip code: [address] Past Medical History Allergies: No known allergies Admission Admission Data Admission Date: 05/21/2018 Admission Time: 6:33 Height (in.): 70 BSA: 2.18 (m2) Height (cm.): 177.8 BMI: 31.85 (kg/m2) Weight (lbs.): 222 Weight (kg.): 100.7 Lab Results Lab Result Date: 05/21/2018 Lab Result Time: 0:00 Biochemistry Name Units Result Min Max BUN mg/dl 28 --(----)-* 7 18 Creatinine mg/dl 1.6 --(----)-* 0.6 1.3 CBC Name Units Result Min Max Hemoglobin g/dl 14.6 --(-*--)-- 13.5 17.5 Procedure Procedure Types Cath Procedure Peripheral Cath Diagnostic Procedure Label Remover Peripheral Procedures [id number] Procedure Description Procedure Date Procedure Date: 05/21/2018 Procedure Start Time: 10:03 Procedure End Time: 10:16 Procedure Staff Name Function Milton Castillo MD Performing Physician Radames Olmedo RN Cargo Trimmer Alexandria Graves RT Monitor Sharonda Saldana RT Scrub Pearl Segura RN Nurse Procedure Data Cath Procedure Fluoroscopy Diagnostic fluoroscopy Total fluoroscopy Time: 1 time: 1 min min Diagnostic fluoroscopy Total fluoroscopy dose: 257 dose: 257 mGy mGy Contrast Material Contrast Material Type Amount (ml) Isovue 300 118 Entry Location Entry Primary Successful Side Size Upsize Upsize Entry Closure Succes sful Closure Location (Fr) 1 (Fr) 2 (Fr) Remarks Device Remarks Femoral Right 5 Fr Exoseal artery Estimated blood loss: 5 ml Diagnostic catheters Device Type Used For End Catheter Placement DIAGNOSTIC UF 5Fr Procedure catheter ([id number]) Procedure Complications No complications Procedure Medications Medication Administration Route Dosage 0.9% NaCl I.V. 100 ml/hr Oxygen etCO2 Nasal cannula 2 l/min Lidocaine 2% added to field 20 Heparin Flush Bag added to field 2 bags (1000units/500ml NS) Versed I.V. 2 mg Fentanyl I.V. 100 mcg Versed I.V. 2 mg Versed I.V. 1 mg Hemodynamics Rest BSA: 2.18 (m2) HGB: 14.6 (g/dl) O2 Consumption: Estimated: 250.92 (ml/min) O2 Co nsumption indexed: Estimated:115.1 (ml/min/m) Heart Rate: 70 (bpm) Snapshots Pre Cath Intra NCS Post Cath Vital Signs Time Heart Resp SPO2 etCO2 NIBP (mmHg) Rhythm Pain Sedation Rate (ipm) (%) (mmHg) Status Level (bpm) 9:36:10 76 12 99 21.1 183/85(150) NSR 0 (11) 10(A) , No pain 9:40:38 67 14 100 12.8 180/99(148) NSR 0 (11) 10(A) , No pain 9:44:56 63 10 98 16.6 149/84(127) NSR 0 (11) 10(A) , No pain 9:49:16 69 11 97 30 159/86(127) NSR 0 (11) 10(A) , No pain 9:53:32 66 14 98 15.1 148/83(112) NSR 0 (11) 10(A) , No pain 9:57:54 69 12 98 26.8 155/80(123) NSR 0 (11) 10(A) , No pain 10:02:13 68 14 98 27 155/83(113) NSR 0 (11) 10(A) , No pain 10:06:35 69 13 98 26.7 144/78(122) NSR 0 (11) 10(A) , No pain 10:10:49 76 15 98 27.3 143/75(116) NSR 0 (11) 10(A) , No pain 10:15:09 71 17 99 28 145/82(119) NSR 0 (11) 10(A) , No pain Medications Time Medication Route Dose Verified Delivered Reason Notes Eff ectiveness by by 9:30:41 0.9% NaCl I.V. 100 Milton Pearl used for ml/hr Jonathan Segura switchboard and control room operator 9:30:49 Oxygen etCO2 2 Milton Pearl used for Nasal l/min Jonathan Segura procedure cannula RN 9:30:59 Lidocaine 2% added 20ml Milton Milton for local to vial Jonathan Castillo MD anesthetic field 9:31:04 Heparin Flush added 2 Milton Milton used for Bag to bags Jonathan Castillo MD procedure (1000units/500ml field NS) 9:58:56 Versed I.V. 2 mg Milton Pearl for Jonathan Segura sedation RN 9:59:05 Fentanyl I.V. 100 Milton Pearl for mcg Jonathan Segura sedation RN 10:06:13 Versed I.V. 2 mg Milton Pearl for Jonathan Segura sedation RN 10:11:46 Versed I.V. 1 mg Milton Pearl for Jonathan Segura sedation venue attendant Log Time Note 9:13:20 Patient Height : 70 inches 9:13:26 Patient Weight : 222 lbs 9:14:54 Time tracking: Regular hours (M-F 7:00 - 5:00) 9:14:59 Plan of Care:Hemodynamics will remain stable., Cardiac rhythm will remain stable., Comfort level will be maintained., Respiratory function will remain adequate., Patient/ family verbilizes understanding of procedure., Procedure tolerated without complication., Recovers from procedure without complications.. 9:15:01 Signed procedure consent form obtained from patient. 9:15:17 H&P Date Dictated: 05/19/2018 Within 30 days and on chart., H&P Addendum completed by physician on day of procedure. (MUST COMPLETE FOR ALL OUTPATIENTS). 9:18:03 Patient allergic to No known allergies 9:22:19 Lab Result : BUN 28 mg/dl 9:: Lab Result : Creatinine 1.6 mg/dl 9::19 Lab Result : Hemoglobin 14.6 g/dl 9:25:53 Radames Olmedo RN sent for patient. Start room use. 9:30:41 0.9% NaCl 100 ml/hr I.V. was administered by Pearl Segura RN; used for procedure; 9:30:47 Patient received from Pre/Post Procedure Room to CCL 1 Alert and oriented. Tansferred to table in Supine position. 9:30:48 Warm blankets applied, and rebeka hugger turned on for patient comfort. 9:30:49 Oxygen 2 l/min etCO2 Nasal cannula was administered by Pearl Segura RN; used for procedure; 9:30:49 Correct patient and procedure confirmed by team. 9:30:50 ECG and BP/O2 sat monitors applied to patient. 9:30:52 Pre-procedure instructions explained to patient. 9:30:52 Pre-op teaching completed and patient verbalized understanding. 9:30:53 Family in waiting room. 9:30:55 Patient NPO since Midnight. 9:30:59 Lidocaine 2% 20ml vial added to field was administered by Milton Castillo MD; for local anesthetic; 9:31:04 Heparin Flush Bag (1000units/500ml NS) 2 bags added to field was administered by Milton Castillo MD; used for procedure; 9:34:48 Vital chart was started 9:37:54 Is the patient allergic to Iodine/contrast media? No. 9:38:13 Was the patient premedicated? N/A 9:38:17 Is patient on blood thinner?Yes 9:38:29 ACC The patient was administered the following blood thiners within the last 24 hours: ACCPlavix, Eliquis 9:38:38 Patient diabetic? No. 9:39:37 Previous problem with sedation/anesthesia? No ? 9:39:45 Snore? Yes 9:39:48 Sleep apnea? No 9:39:50 Deviated septum? No 9:39:51 Opens mouth fully? Yes 9:39:53 Sticks out tongue? Yes 9:40:07 Airway obstruction? No ? 9:40:13 Dentures? No ? 9:41:44 Pre procedure: right dorsailis pedis pulse 1+ Palpable, but thready & weak; easily obliterated 9:42:04 Baseline sample Acquired. 9:42:16 Rhythm: sinus rhythm 9:43:28 Pre procedure: left dorsailis pedis pulse 2+ Normal; easily identifiable; not easily obliterated 9:45:57 IV patent on arrival in left antecubital with 0.9% NaCl at [facility]. 9:45:59 Lab results completed and on chart. 9:46:01 Bilateral groins area was prepped with chlora-prep and draped in sterile fashion 9:46:03 Alarms reviewed by R. N. 9:46:03 Sharps counted by scrub and verified by R.N. 9:46:11 Use device set CATH PACK 9:46:12 ACIST Syringe ([id number]) opened to sterile field. 9:46:13 ACIST Hand Control (27252) opened to sterile field. 9:46:13 ACIST Manifold (43941) opened to sterile field. 9:46:13 Medline Cath Pack ([id number]) opened to sterile field. 9:46:14 Bag Decanter (2002S) opened to sterile field. 9:46:15 DIAGNOSTIC WIRE .035 260cm J wire ([id number]) opened to sterile field. 9:46:22 SHEATH 5FR [place] ([id number]) opened to sterile field. 9:53:53 Zero performed for pressure channel P1 9:58:11 --------ALL STOP TIME OUT------ 9:58:12 Final Timeout: patient, procedure, and site verified with staff and physician. All members of the team are in agreement. 9:58:14 Bilateral groins site verified by team. 9:58:16 Physical assessment completed. ASA score P 2 - A patient with mild systemic disease as per Milton Castillo MD. 9:58:19 Sedation plan: IV Moderate Sedation Medication:Versed, Fentanyl 9:58:56 Versed 2 mg I.V. was administered by Pearl Segura RN; for sedation; 9:59:05 Fentanyl 100 mcg I.V. was administered by Pearl Segura RN; for sedation; 10:02:54 Procedure started. 10:02:54 Full Disclosure recording started 10:03:01 Local anesthetic to right femoral artery with Lidocaine 2% by Milton Castillo MD.INITIAL ACCESS ONLY 10:03:15 Zero performed for pressure channel P1 10:04:14 A 5 Fr sheath was inserted into the Right Femoral artery 10:04:32 A DIAGNOSTIC UF 5Fr catheter ([id number]) was advanced over the wire and used for Procedure. 10:04:46 Zero performed for pressure channel P1 10:04:59 Zero performed for pressure channel P1 10:06:13 Versed 2 mg I.V. was administered by Pearl Segura RN; for sedation; 10:06:14 Abdominal angiogram w/ runoff was performed. 10:07:18 Left leg runoff performed. 10:08:01 Right leg runoff performed. 10:11:12 Catheter removed. 10:11:21 EXOSEAL 5Fr (EX500) opened to sterile field. 10:11:46 Versed 1 mg I.V. was administered by Pearl Segura RN; for sedation; 10:12:01 Sheath removed intact; hemostasis achieved with Exoseal to the Right Femoral artery. 10:12:31 Procedure ended.(Physican Out) 10:13:32 Fluoroscopy time 01.00 minutes. 10:13:37 Fluoroscopy dose: 257 mGy 10:13:37 Flurop Dose total: 257 10:13:58 Contrast amount:Isovue 300 118ml. 10:14:35 Sharps counted by scrub and verified by R.N. 10:14:39 Post-op/insertion site Right Femoral artery dressed using a 4 x 4 and Tegaderm. 10:14:43 Post right femoral artery:stable, soft, clean and dry 10:15:23 Post-procedure physical assessment completed. ASA score P 2 - A patient with mild systemic disease as per Milton Castillo MD. 10:15:36 Post procedure rhythm: sinus rhythm 10:15:38 Estimated blood loss: 5 ml 10:15:40 Post procedure instruction explained to patient.Patient verbalizes understanding. 10:15:40 Patient needs reinforcement of post procedure teaching. 10:16:23 Procedure and supply charges have been captured, reviewed, submitted and are correct. 10:16:25 Procedure Complication : No complications 10:16:29 Vital chart was stopped 10:16:29 See physician's report for complete and final results. 10:16:36 Report given to Pre/Post Procedure Room. 10:16:52 Patient transfered to Pre/Post Procedure Room with Bed. 10:16:55 Procedure ended. 10:16:55 Full Disclosure recording stopped 10:16:58 End room use (Document Last) Device Usage Item Name Manufacture Quantity Catalog Hospital Part Current Minimal L ot# / Number Charge Number Stock Stock Serial# Code ACIST Acist 1 91853 [id number] [id number] [id number] 20 Syringe Medical (17530) Systems Inc ACIST Hand Acist 1 10595 350992 211498 305107 5 Control Medical (07431) Systems Inc ACIST Acist 1 20836 573817 392899 224946 5 Manifold Medical (45856) Systems Inc Medline Medline 1 [id number] 340609 32979 928754 5 Cath Pack ([id number]) Bag Microtek 1 2001S 085492 97687 422210 5 Decanter Medical Inc. () DIAGNOSTIC [place] 1 563714 475238 624196 973913 30 WIRE .035 260cm J wire (784548) SHEATH 5FR Terumo 1 QAS479 990512 795613 977932 40 [place] ([id number]) DIAGNOSTIC Cardinal 1 [id number] 316884 275391 108111 10 UF 5Fr Health catheter ([id number]) EXOSEAL 5Fr Cardinal 1 EX500 156339 856437 232060 10 (EX500) Health Signature Audit Callao Stage Time Signature Unsigned Intra-Procedure 05/21/2018 Alexandria Graves 10:19:27 AM RT(R) Signatures Monitor : Alexandria Graves Signature : RT Date : Time : [place] [id number] [place] [address]
[~2018-05-21 06:33] MED LIST changes: +BACLOFEN10 MG PO; +CYMBALTA30 MG PO; +MEDROL DOSE PACK4 MG PO; +ZYLOPRIM100 MG PO
[2018-05-21 07:57] VITALS: BP 134/71; Ht 177.8 cm; Wt 100.0 kg
[2018-05-21 08:03] LABS: BASOPHILS 0.8 % (0-2); EOSINOPHILS 5.4 % (0-7); HEMATOCRIT 42.1 % (42.0-54.0); HEMOGLOBIN 14.6 g/dL (13.5-17.5); IMMATURE GRANULOCYTES 1.3 % (0-5); LYMPHOCYTES 21.2 % (15-50); MCH 31.7 pg (26.0-34.0); MCHC 34.7 g/dL (31.0-37.0); MCV 91.3 fL (80.0-100.0); MEAN PLATELET VOLUME 10.6 fL (7.4-10.4); MONOCYTES 8.2 % (2-11); NEUTROPHILS 63.1 % (40-80); PLATELET COUNT 180 10x3/uL (130-400); RBC 4.61 10x6/uL (4.20-6.10); RDW 13.1 % (11.5-14.5)
[2018-05-21 08:10] LABS: ANION GAP 13.3 mmol/L (8-16); CALCIUM 8.8 mg/dL (8.5-10.1); CREATININE - SERUM 1.6 mg/dL (0.6-1.3); POTASSIUM - SERUM 3.3 mmol/L (3.5-5.1)
== END | disposition home or self-care (01) ==
LOC: D.CATH 06:33
PROVIDERS: Internal Medicine Cardiovascular Disease
DX: I70.213 Atherosclerosis of native arteries of extremities with intermittent claudication, bilateral legs (principal); Z01.812 Encounter for preprocedural laboratory examination

== ENCOUNTER 2018-06-04 06:30 | Outpatient (CLI) | payer MEDICARE ==
[~2018-06-04] VITALS: Ht 177.8 cm; Wt 100.0 kg
--- NOTE | ~2018-06-04 | HEMODYNAMI ---
PATIENT:OMAR ELAM MEDICAL RECORD: [id number] : 41 LOCATION:D.CAT ADMISSION DATE: 06/04/18 Generatedon:06/04/20189:47 Patient name: OMAR ELAM Patient #: [id number] SSN: : 1945 Date of study: 06/04/2018 Page: Of Hemodynamic Procedure Report Patient Data Patient Demographics Procedure consent was obtained First Name: OMAR Gender: Male Last Name: PAPA : 1945 [facility] Initial: SOFIE Age: 73 year(s) Patient #: [id number] Race: Additional ID: [id number] Contact details Address: [address] [place] [address] State: [place] City: [place] Zip code: [address] Past Medical History Allergies: No known allergies Admission Admission Data Admission Date: 06/04/2018 Admission Time: 6:30 Lab Results Lab Result Date: 06/04/2018 Lab Result Time: 0:00 Biochemistry Name Units Result Min Max BUN mg/dl 30 --(----)-* 7 18 Creatinine mg/dl 1.5 --(----)-* 0.6 1.3 Procedure Procedure Types Cath Procedure Diagnostic Procedure Sedation Charges Moderate Sedation up to 30 minutes Peripheral Cath Diagnostic Procedure Abd/Extremity Extremities Bilat Lower Extremity Peripheral vascular Intervention Stent Stent Iliac w/plasty Initial Stent-Fem/Popw/plasty Procedure Description Procedure Date Procedure Date: 06/04/2018 Procedure Start Time: 8:37 Procedure End Time: 9:41 Procedure Staff Name Function Milton Castillo MD Performing Physician Sharonda Saldana RT Monitor Alyssa Neville RT Scrub Radames Olmedo RN Nurse Procedure Data Cath Procedure Fluoroscopy Diagnostic fluoroscopy Total fluoroscopy Time: time: 15.3 min 15.3 min Diagnostic fluoroscopy Total fluoroscopy dose: 795 dose: 795 mGy mGy Contrast Material Contrast Material Type Amount (ml) Isovue 300 77 Entry Location Entry Primary Successful Side Size Upsize Upsize 2 Entry Closure De La O ccessful Closure Location (Fr) 1 (Fr) (Fr) Remarks Device Remarks Femoral Left 6 Fr 6 Fr 6 Fr Exoseal artery Short Long Mid-Length Estimated blood loss: 5 ml Diagnostic catheters Device Type Used For End Catheter Placement DIAGNOSTIC IM 5Fr Multi-vessel catheter ([id number]) Angiography DIAGNOSTIC Pigtail 5Fr Multi-vessel catheter ([id number]) Angiography DIAGNOSTIC Pigtail 5Fr Multi-vessel catheter ([id number]) Angiography Procedure Complications No complications Procedure Medications Medication Administration Route Dosage Oxygen etCO2 Nasal cannula 2 l/min Heparin Flush Bag added to field 2 bags (1000units/500ml NS) 0.9% NaCl I.V. 100 ml/hr Fentanyl I.V. 50 mcg Versed I.V. 1 mg Fentanyl I.V. 50 mcg Versed I.V. 1 mg Heparin Bolus I.V. 8000 units Heparin Bolus I.V. 3000 units Plavix P.O. 600 mg Hemodynamics Rest Heart Rate: 58 (bpm) Snapshots Pre Cath Intra NCS Post Cath Vital Signs Time Heart Resp SPO2 etCO2 NIBP (mmHg) Rhythm Pain Sedation Rate (ipm) (%) (mmHg) Status Level (bpm) 8:24:13 59 16 97 0 164/90(147) NSR 0 (11) 10(A) , No pain 8:29:28 57 17 99 1.4 165/82(141) NSR 0 (11) 10(A) , No pain 8:33:50 51 17 95 0 138/78(117) NSR 0 (11) 9(A) , No pain 8:38:02 56 17 96 0 151/77(113) NSR 0 (11) 9(A) , No pain 8:42:18 59 17 95 0 130/80(109) NSR 0 (11) 9(A) , No pain 8:46:26 61 16 95 0 124/79(93) NSR 0 (11) 9(A) , No pain 8:50:32 61 17 94 0 142/81(95) NSR 0 (11) 9(A) , No pain 8:54:46 58 16 96 0 127/73(114) NSR 0 (11) 9(A) , No pain 8:59:59 60 17 96 0.7 135/74(114) NSR 0 (11) 9(A) , No pain 9:04:09 62 17 96 0 144/83(122) NSR 0 (11) 9(A) , No pain 9:08:21 56 17 96 0 146/84(121) NSR 0 (11) 9(A) , No pain 9:12:35 60 16 96 0 142/81(121) NSR 0 (11) 9(A) , No pain 9:16:47 57 17 97 0 151/82(128) NSR 0 (11) 9(A) , No pain 9:21:03 65 17 97 0 140/84(124) NSR 0 (11) 9(A) , No pain 9:26:19 58 17 97 0 160/77(133) NSR 0 (11) 9(A) , No pain 9:30:37 63 17 97 2.2 153/84(124) NSR 0 (11) 9(A) , No pain 9:34:51 54 16 97 0.7 152/85(131) NSR 0 (11) 9(A) , No pain 9:39:07 55 16 98 1.4 145/83(131) NSR 0 (11) 9(A) , No pain 9:42:32 57 17 98 1.4 141/76(134) NSR 0 (11) 9(A) , No pain Medications Time Medication Route Dose Verified Delivered Reason Notes Effectiveness by by 8:24:04 Oxygen etCO2 2 Milton Radames Per physician Nasal l/min Jonathan Olmedo RN cannula 8:24:12 Heparin Flush added 2 Milton Radames used for Bag to bags Jonathan Olmedo oracle etl developer (1000units/500ml field NS) 8:24:22 0.9% NaCl I.V. 100 Milton Radames Per physician ml/hr Jonathan Olmedo RN 8:30:42 Fentanyl I.V. 50 Milton Radames for sedation mcg Jonathan Olmedo RN 8:30:49 Versed I.V. 1 mg Milton Radames for sedation Jonathan Olmedo RN 8:39:24 Fentanyl I.V. 50 Milton Radames for sedation mcg Jonathan Olmedo RN 8:39:27 Versed I.V. 1 mg Milton Radames for sedation Jonathan Olmedo RN 8:48:12 Heparin Bolus I.V. 8000 Milton Crum for units Jonathan Olmedo RN anticoagulation 9:27:58 Heparin Bolus I.V. 3000 Milton Crum for units Jonathan Olmedo RN anticoagulation 9:40:46 Plavix P.O. 600 Milton Crum for mg Jonathan Olmedo RN antiplatelet therapy Procedure Log Time Note 8:00:35 Alyssa Neville RT(R) sent for patient. Start room use. 8:22:36 Time tracking: Regular hours (M-F 7:00 - 5:00) 8:22:43 Plan of Care:Hemodynamics will remain stable., Cardiac rhythm will remain stable., Comfort level will be maintained., Respiratory function will remain adequate., Patient/ family verbilizes understanding of procedure., Procedure tolerated without complication., Recovers from procedure without complications.. 8:22:56 Patient received from Pre/Post Procedure Room to CCL 2 Alert and oriented. Tansferred to table in Supine position. 8:23:01 Warm blankets applied, and rebeka hugger turned on for patient comfort. 8:23:01 Correct patient and procedure confirmed by team. 8:23:02 Signed procedure consent form obtained from patient. 8:23:03 ECG and BP/O2 sat monitors applied to patient. 8:23:03 Vital chart was started 8:23:04 Baseline sample Acquired. 8:23:08 Rhythm: sinus rhythm 8:23:13 Full Disclosure recording started 8:23:19 H&P Date Dictated: 06/04/2018 Within 30 days and on chart., H&P Addendum completed by physician on day of procedure. (MUST COMPLETE FOR ALL OUTPATIENTS). 8:23:20 Pre-procedure instructions explained to patient. 8:23:21 Pre-op teaching completed and patient verbalized understanding. 8:23:22 Family in waiting room. 8:23:24 Patient NPO since Midnight. 8:23:26 Is the patient allergic to Iodine/contrast media? No. 8:23:27 Was the patient premedicated? No 8:23:37 Is patient on blood thinner?Yes 8:23:42 ACC The patient was administered the following blood thiners within the last 24 hours: Eliquis 8:23:44 Patient diabetic? No. 8:23:48 Previous problem with sedation/anesthesia? No ? 8:23:49 Snore? No 8:23:50 Sleep apnea? No 8:23:51 Deviated septum? No 8:23:52 Opens mouth fully? Yes 8:23:52 Sticks out tongue? Yes 8:23:54 Airway obstruction? No ? 8:23:56 Dentures? No ? 8:24:04 Oxygen 2 l/min etCO2 Nasal cannula was administered by Radames Olmedo RN; Per physician; 8:24:12 Heparin Flush Bag (1000units/500ml NS) 2 bags added to field was administered by Radames Olmedo RN; used for procedure; 8:24:22 0.9% NaCl 100 ml/hr I.V. was administered by Radames Olmedo RN; Per physician; 8:25:28 Pre procedure: right dorsailis pedis pulse Doppler 8:25:33 Pre procedure: left dorsailis pedis pulse Doppler 8:25:36 Patient pain scale 0/10 ?. 8:25:42 IV patent on arrival in left forearm with 0.9% NaCl at O. 8:25:45 Lab results completed and on chart. 8:25:51 Bilateral groins area was prepped with chlora-prep and draped in sterile fashion 8:25:51 Alarms reviewed by R. N. 8:25:52 Sharps counted by scrub and verified by R.N. 8:26:56 Physician arrived 8:26:56 --------ALL STOP TIME OUT------ 8:26:56 Final Timeout: patient, procedure, and site verified with staff and physician. All members of the team are in agreement. 8:27:00 Bilateral groins site verified by team. 8:27:04 Physical assessment completed. ASA score P 2 - A patient with mild systemic disease as per Milton Castillo MD. 8:27:07 Sedation plan: IV Moderate Sedation Medication:Versed, Fentanyl 8:27:29 Use device set CATH PACK 8:27:31 DIAGNOSTIC WIRE .035 260cm J wire (160666) opened to sterile field. 8:27:32 Bag Decanter (2002) opened to sterile field. 8:27:33 Medline Cath Pack ([id number]) opened to sterile field. 8:27:34 ACIST Manifold (84751) opened to sterile field. 8:27:35 ACIST Hand Control (30315) opened to sterile field. 8:27:35 ACIST Syringe (46042) opened to sterile field. 8:27:42 SHEATH 6FR Dakota (WBO738) opened to sterile field. 8:28:26 Lab Result : Creatinine 1.5 mg/dl 8:28:26 Lab Result : BUN 30 mg/dl 8:30:42 Fentanyl 50 mcg I.V. was administered by Radames Olmedo RN; for sedation; 8:30:49 Versed 1 mg I.V. was administered by Radames Olmedo RN; for sedation; 8:37:38 Procedure started. 8:37:43 Local anesthetic to left femerol artery with Lidocaine 2% by Milton Castillo MD.INITIAL ACCESS ONLY 8:38:03 INFLATOR Merit BasixCompak (YK8313) opened to sterile field. 8:38:13 GLIDE WIRE MERIT Angled 260cm ([id number]) opened to sterile field. 8:38:45 TORQUE DEVICE PLASTIC .038 ( TD01) opened to sterile field. 8:38:56 A 6 Fr Short sheath was inserted into the Left Femoral artery 8:39:24 Fentanyl 50 mcg I.V. was administered by Radames Olmedo RN; for sedation; 8:39:27 Versed 1 mg I.V. was administered by Radames Olmedo RN; for sedation; 8:42:23 A DIAGNOSTIC IM 5Fr catheter ([id number]) was advanced over the wire and used for Multi-vessel Angiography. 8:42:55 glide wire advanced. 8:43:47 Catheter removed. 8:45:20 SHEATH 6FR ARROW 45cm (CL-86174) opened to sterile field. 8:46:22 Sheath upsized to a 6 Fr Long. 8:48:12 Heparin Bolus 8000 units I.V. was administered by Radames Olmedo RN; for anticoagulation; 8:48:37 Right leg runoff performed. 8:49:32 CHOICE PT Extra Support J 300cm guide wire ([id number]) opened to sterile field. 8:50:01 glide wire exchanged for choice pt extra support 8:55:32 Inflate balloon Inflation number: 1 A POWERFLEX PRO 6.0 x 40 x 135cm balloon ([id number]) was prepped and advanced across the Distal Superficial Femoral, Right, then inflated to 5 CHERRIE for 0:30 (min:sec). 8:56:28 choice pt wire exchanged for j wire 8:56:36 Balloon removed over the wire. 9:03:13 SMART 6 X 40 X 120 stent ([id number]) was deployed across Distal Superficial Femoral, Right . 9:03:37 Stent catheter was removed intact over wire. 9:08:43 Inflation number: 2 The POWERFLEX PRO 6.0 x 40 x 135cm balloon ([id number]) was reinflated across the Distal Superficial Femoral, Right, to 10 CHERRIE for 0:30 (min:sec). 9:09:47 Balloon removed over the wire. 9:13:32 SHEATH 6FR Brite Tip 35cm ([id number]) opened to sterile field. 9:13:46 Sheath upsized to a 6 Fr Mid-Length. 9:14:10 A DIAGNOSTIC Pigtail 5Fr catheter ([id number]) was advanced over the wire and used for Multi-vessel Angiography. 9:16:17 Left leg runoff performed. 9:18:11 Catheter removed. 9:23:08 The POWERFLEX PRO 6.0 x 40 x 135cm balloon ([id number]) was advanced and then removed because in body, not inflated 9:27:58 Heparin Bolus 3000 units I.V. was administered by Radames Olmedo RN; for anticoagulation; 9:31:18 EVERFLEX 8 x 60 Stent ([id number]) was deployed across Mid Common Iliac, Left . 9:31:24 Stent catheter was removed intact over wire. 9:33:25 Inflate balloon Inflation number: 1 A POWERFLEX PRO 8.0 X 60 X 135 balloon ([id number]) was prepped and advanced across the Mid Common Iliac, Left, then inflated to 10 CHERRIE for 0:10 (min:sec). 9:34:07 Balloon removed over the wire. 9:34:13 A DIAGNOSTIC Pigtail 5Fr catheter ([id number]) was advanced over the wire and used for Multi-vessel Angiography. 9:34:19 Left leg runoff performed. 9:35:56 EXOSEAL 6Fr (EX600) opened to sterile field. 9:39:10 6 X 35 brite tip exchanged for short 6F pinnacle sheath 9:39:20 Sheath removed intact; hemostasis achieved with Exoseal to the Left Femoral artery. 9:39:23 Procedure ended.(Physican Out) 9:39:37 Fluoroscopy time 15.30 minutes. 9:39:41 Fluoroscopy dose: 795 mGy 9:39:41 Flurop Dose total: 795 9:40:04 Contrast amount:Isovue 300 77ml. 9:40:05 Sharps counted by scrub and verified by R.N. 9:40:19 Insertion/operative site no bleeding no hematoma. 9:40:23 Post-op/insertion site Left Femoral artery dressed using a 4 x 4 and Tegaderm. 9:40:27 Post left femerol artery:stable 9:40:28 Post Procedure Pulses reassessed and unchanged 9:40:30 Post procedure rhythm: unchanged. 9:40:32 Estimated blood loss: 5 ml 9:40:34 Post procedure instruction explained to patient.Patient verbalizes understanding. 9:40:34 Patient needs reinforcement of post procedure teaching. 9:40:46 Plavix 600 mg P.O. was administered by Radames Olmedo RN; for antiplatelet therapy; 9:41:32 Procedure type changed to Cath procedure, Diagnostic procedure, Sedation Charges, Moderate Sedation up to 30 minutes, Peripheral Cath Diagnostic Procedure, Abd/Extremity, Extremities, Bilat Lower Extremity, Peripheral vascular Intervention, Stent, Stent Iliac w/plasty Initial, Stent-Fem/Popw/plasty 9:41:33 Procedure and supply charges have been captured, reviewed, submitted and are correct. 9:41:37 Procedure Complication : No complications 9:41:40 Vital chart was stopped 9:41:40 See physician's report for complete and final results. 9:41:44 Report given to Pre/Post Procedure Room. 9:41:47 Patient transfered to Pre/Post Procedure Room with Stretcher. 9:41:49 Procedure ended. 9:41:49 Full Disclosure recording stopped 9:41:57 ACC-PCI Only Patient was given prescriptions, or instructed by Milton Castillo MD to start/continue the following medications upon discharge: Plavix 9:41:58 End room use (Document Last) Intervention Summary Intervention Notes Time ActionType Lesion and Equipment Used Action# Pressure Duration Attributes 8:55:32 Inflate Distal POWERFLEX PRO 1 5 00:30 balloon Superficial 6.0 x 40 x Femoral, 135cm balloon Right ([id number]) 9:03:13 Deploy self Distal SMART 6 X 40 X 1 expanding Superficial 120 stent stent Femoral, ([id number]) Right 9:08:43 Reinflate Distal POWERFLEX PRO 2 10 00:30 balloon Superficial 6.0 x 40 x Femoral, 135cm balloon Right ([id number]) 9:23:08 Discard POWERFLEX PRO Balloon 6.0 x 40 x 135cm balloon ([id number]) 9:31:18 Deploy self Mid Common EVERFLEX 8 x 60 1 expanding Iliac, Left Stent stent ([id number]) 9:33:25 Inflate Mid Common POWERFLEX PRO 1 10 00:10 balloon Iliac, Left 8.0 X 60 X 135 balloon ([id number]) Device Usage Item Name Manufacture Quantity Catalog Number [facility] Lot# / Charge Number Stock Stock Serial# Code DIAGNOSTIC WIRE St Eliezer 1 [id number] 380879 557320 30 .035 260cm J wire (945255) Bag Decanter Microtek 1 716166 98213 844437 5 () Medical Inc. Medline Cath Medline 1 [id number] 452057 30990 839836 5 Pack ([id number]) ACIST Manifold Acist 1 51201 907625 916725 140356 5 (63019) Medical Systems Inc ACIST Hand Acist 1 80576 478042 563158 469168 5 Control (55861) [employer] ACIST Syringe Acist 1 22644 537934 852555 918501 20 (37656) [employer] Systems Inc SHEATH 6FR Terumo 1 BAX633 274102 658488 568169 40 Dakota (PBG033) INFLATOR Merit Merit 1 CZ5300 718749 488026 497310 15 CorepairmdEndovention Medical (JD4865) GLIDE WIRE Merit 1 [id number] 492804 621953 123136 5 [id number] MERIT Angled Medical 260cm ([id number]) TORQUE DEVICE [place] 1 TD01 095278 003706 459792 5 PLASTIC .038 ( Scientific TD01) DIAGNOSTIC IM Cardinal 1 [id number] 030847 426864 730273 5 5Fr 88tc88 [facility] (993272L) SHEATH 6FR Teleflex 1 CL-38679 134354 906558 045136 5 ARROW 45cm (CL-02801) CHOICE PT Extra [place] 1 [id number] 388702 892847 120202 5 Support J 300cm Scientific guide wire ([id number]) POWERFLEX PRO Cardinal 1 [id number] 440333 034763 630258 5 6.0 x 40 x Health 135cm balloon ([id number]) SMART 6 X 40 X Cardinal 1 [id number] 597262 862489 0 [id number] 120 stent Health ([id number]) SHEATH 6FR Cardinal 1 [id number] 427743 235402 702273 1 Brite Tip 35cm Health (041658H) DIAGNOSTIC Cardinal 1 [id number] 963417 529690 971112 5 Pigtail 5Fr Health catheter (806788D) EVERFLEX 8 x 60 Medtronic 1 [id number] 009339 106105 083395 5 [id number] Stent [id number] ([id number]) POWERFLEX PRO Cardinal 1 [id number] 856054 378970 5 8.0 X 60 X 135 Health balloon ([id number]) EXOSEAL 6Fr Cardinal 1 EX600 425800 665275 430733 10 (EX600) Health Signature Audit [place] Stage Time Signature Unsigned Intra-Procedure 06/04/2018 Sharonda Saldana 9:47:27 AM RT(R) Signatures Monitor : Sharonda Saldana RT Signature : Date : Time : [address] [place] [address]
[2018-06-04 07:03] VITALS: BP 158/80; Ht 177.8 cm; Wt 100.0 kg
[2018-06-04 07:24] LABS: ANION GAP 14.6 mmol/L (8-16); CALCIUM 9.2 mg/dL (8.5-10.1); CARBON DIOXIDE 27.6 mmol/L (21.0-32.0); CREATININE - SERUM 1.5 mg/dL (0.6-1.3); POTASSIUM - SERUM 3.2 mmol/L (3.5-5.1)
[2018-06-04 07:45] LABS: BASOPHILS 0.8 % (0-2); EOSINOPHILS 4.4 % (0-7); HEMATOCRIT 43.7 % (42.0-54.0); HEMOGLOBIN 15.3 g/dL (13.5-17.5); IMMATURE GRANULOCYTES 1.4 % (0-5); LYMPHOCYTES 19.4 % (15-50); MCH 31.5 pg (26.0-34.0); MCV 89.9 fL (80.0-100.0); MEAN PLATELET VOLUME 10.6 fL (7.4-10.4); MONOCYTES 5.6 % (2-11); NEUTROPHILS 68.4 % (40-80); PLATELET COUNT 189 10x3/uL (130-400); RBC 4.86 10x6/uL (4.20-6.10); RDW 12.9 % (11.5-14.5); WBC 6.4 10x3/uL (4.8-10.8)
[2018-06-04] MEDS ORDERED: PLAVIX75 MG PO (09:49)
== END 2018-06-04 13:55 | disposition home or self-care (01) ==
LOC: D.CATH 06:30
PROVIDERS: Internal Medicine Cardiovascular Disease
DX: I70.213 Atherosclerosis of native arteries of extremities with intermittent claudication, bilateral legs (principal); Z01.812 Encounter for preprocedural laboratory examination

== ENCOUNTER → 2019-03-03 12:13 | Outpatient (CLI) | payer MEDICARE ==
[2018-06-04 07:03] VITALS: BMI 31.6
== END | disposition home or self-care (01) ==
LOC: D.HCCARDIO 12:13
PROVIDERS: ATTEND Internal Medicine Cardiovascular Disease
DX: I35.1 Nonrheumatic aortic (valve) insufficiency (principal)